=== PATIENT | female | born 1955 | race Caucasian/White ===

== ENCOUNTER 2018-06-03 09:37 | Day surgery (SDC) | payer OTHER ==
[~2018-06-03 09:37] MED LIST: BUPIVACAINE HCL 0.75% INJ/PF (7.5 MG/1 ML) 10 ML SDV OS PRN; CHONDR SU A NA/HYALUR INTRAOC KIT (SURGICARE) ONE; EPINEPHRINE INJ/PF 1 MG/1 ML AMPULE ONE; KETOROLAC TROMETHAMINE 0.45% 4 DROP/0.4 ML DROPERETTE OS PRN; LIDOCAINE 1% INJ-PF (10 MG/ML) 30 ML SDV ONE; LIDOCAINE 4% INJ/PF (40 MG/ML) 5 ML AMPUL OS PRN
[2018-06-03] MEDS: TROPICAMIDE 1% OPH SOLN 3 ML OS PRN ×3 (11:25→11:45)
[2018-06-03] MEDS: CYCLOPENTOLATE 0.2%/PHENYLEPHRINE 1% OPH SOLN 2 ML OS PRN ×3 (11:25→11:45)
[2018-06-03] MEDS: BESIFLOXACIN HCL 0.6% OPH SUSP 5 ML BOTTLE OS PRN ×4 (11:26→12:25)
[2018-06-03] MEDS: TETRACAINE HCL 0.5% OPH SOLN 0.6 ML DROPERETTE OS PRN ×2 (11:27→11:47)
[2018-06-03] MEDS ORDERED: MIDAZOLAM 2 MG/2 ML INJ ONE (11:31)
[2018-06-03] MEDS ORDERED: LIDOCAINE 1%/PHENYLEPHRINE 1.5% 1 ML VIAL ONE (12:07)
[2018-06-03] MEDS: DORZOLAMIDE HCL 2%/TIMOLOL MALEAT 0.5% OPH SOLN 10 ML OS PRN ×2 (12:25)
[2018-06-03] MEDS ORDERED: PROPOFOL INJ 200 MG/20 ML VIAL IV ONE (12:28)
[2018-06-03] MEDS ORDERED: ACETAMINOPHEN 325 MG TABLET ONE (12:40)
--- NOTE | 2018-06-03 12:43 | [facility] DISCHARGE SUMMARY E ---
[facility] Discharge Summary NAME: RAHEEL NORIEGA AGE: 62Y ADMITTED: 06/03/2018 DISCHARGED: 06/03/2018 FINAL DIAGNOSIS: CATARACT, LEFT EYE HOSPITAL COURSE: The patient is a 62-year-old lady who underwent uneventful cataract extraction with intraocular lens implant, left eye on 06/03/2018. She will be discharged to home. She is instructed to resume preoperative medications, take Tylenol as needed for discomfort, to keep her eye shielded, to use Durezol, PROLENSA, and Besivance at 3 p.m. and 8 p.m., and to follow up in my office in 1 day. DICTATING PHYSICIAN: RYAN VALDES M.D. [id number] PHY#: [id number] ID: [id number] JOB#: [id number] ACCT: [id number] cc:RYAN VALDES M.D. >
--- NOTE | 2018-06-03 12:43 | [facility] OPERATIVE REPORT E ---
[facility] Operative Report NAME: RAHEEL NORIEGA AGE: 62Y DATE OF SURGERY: 06/03/2018 ROOM: PREOPERATIVE DIAGNOSIS: CATARACT, LEFT EYE. POSTOPERATIVE DIAGNOSIS: CATARACT, LEFT EYE. PROCEDURE PERFORMED: PHACOEMULSIFICATION WITH SYMFONY INTRAOCULAR LENS IMPLANT, LEFT EYE. SURGEON: RYAN VALDES MD ANESTHESIA: TOPICAL WITH MAC. PROCEDURE: The patient was brought to the Operating Room and placed on the operative table. Following tetracaine drops, topical anesthesia was administered. This consisted of instrument wipe pledgets soaked in a solution of 4% Xylocaine mixed with 0.75% Marcaine in a 1:2 ratio. A 2 x 1 cm pledget was placed in the superior fornix. A 1 x 1 cm pledget was placed in the inferior fornix. The eye was patched shut for 5 minutes. The patch was removed. The eye was sterilely prepped and draped in the usual manner. Lid speculum was placed in the eye. The pledgets were removed. 4-0 black silk sutures were placed around the superior and the inferior rectus muscles to be used as traction. A conjunctival peritomy was made at the 10 o'clock position. Hemostasis was obtained with bipolar cautery. A posterior limbal groove was created using a crescent knife and dissected anteriorly towards the cornea. A sharp point blade was used to create a paracentesis site at the 2 o'clock position. A 2.4 mm keratome was used to enter the anterior chamber through the groove. Viscoelastic was injected into the anterior chamber. An anterior capsulotomy was performed using Utrata forceps in a capsulorrhexis fashion. Hydrodissection and hydrodelineation were performed. Phacoemulsification was performed in okeeoy-kbe-bdnlkuc technique. A total of 2.28 CDE phaco time was used. Following this, the I/A unit was used to remove residual cortex. Viscoelastic was injected into the capsular bag. Intraocular lens model ZXR00, 20.0 diopters, serial number [id number] was placed in the capsular bag. The I/A unit was used to remove residual viscoelastic. The wound was seen to be watertight under high and low pressure, and no sutures were placed. The intraocular lens was well centered. The pressure was adjusted in the eye to normal pressure. The 4-0 black silk sutures and lid speculum were removed. The eye was shielded after Besivance drops were placed. The patient tolerated the procedure well and was sent to the Recovery Room in good condition. DICTATING PHYSICIAN: RYAN VALDES M.D. DICTATING PHYSICIAN: RYAN VALDES M.D. [id number] PHY#: [id number] ID: [id number] JOB#: [id number] ACCT: [id number] cc:RYAN VALDES M.D. >
== END 2018-06-03 13:33 | disposition home or self-care (01) ==
LOC: SC 09:37
PROVIDERS: ATTEND Ophthalmology
DX: H25.013 Cortical age-related cataract, bilateral (principal); H43.811 Vitreous degeneration, right eye; Z87.891 Personal history of nicotine dependence; M81.0 Age-related osteoporosis without current pathological fracture
CPT/HCPCS: 66984; V2788; J2250; J3490 ×4; J0171; J2704; J2370; 142

== ENCOUNTER 2018-07-07 07:55 | Day surgery (SDC) | payer OTHER ==
[~2018-07-07 07:55] MED LIST changes: +BUPIVACAINE HCL 0.75% INJ/PF (7.5 MG/1 ML) 10 ML SDV OD PRN; -BUPIVACAINE HCL 0.75% INJ/PF (7.5 MG/1 ML) 10 ML SDV OS PRN; -CHONDR SU A NA/HYALUR INTRAOC KIT (SURGICARE) ONE; -EPINEPHRINE INJ/PF 1 MG/1 ML AMPULE ONE; +KETOROLAC TROMETHAMINE 0.45% 4 DROP/0.4 ML DROPERETTE OD PRN; -KETOROLAC TROMETHAMINE 0.45% 4 DROP/0.4 ML DROPERETTE OS PRN; -LIDOCAINE 1% INJ-PF (10 MG/ML) 30 ML SDV ONE; +LIDOCAINE 4% INJ/PF (40 MG/ML) 5 ML AMPUL OD PRN; -LIDOCAINE 4% INJ/PF (40 MG/ML) 5 ML AMPUL OS PRN
[2018-07-07] MEDS: CYCLOPENTOLATE 0.2%/PHENYLEPHRINE 1% OPH SOLN 2 ML OD PRN ×3 (09:10→09:36)
[2018-07-07] MEDS: TROPICAMIDE 1% OPH SOLN 3 ML OD PRN ×3 (09:10→09:36)
[2018-07-07] MEDS: BESIFLOXACIN HCL 0.6% OPH SUSP 5 ML BOTTLE OD PRN ×4 (09:11→10:20)
[2018-07-07] MEDS: TETRACAINE HCL 0.5% OPH SOLN 0.6 ML DROPERETTE OD PRN ×2 (09:12→09:37)
[2018-07-07] MEDS ORDERED: EPINEPHRINE INJ/PF 1 MG/1 ML AMPULE ONE (09:54)
[2018-07-07] MEDS ORDERED: LIDOCAINE 1% INJ-PF (10 MG/ML) 30 ML SDV ONE (09:54)
[2018-07-07] MEDS ORDERED: CHONDR SU A NA/HYALUR INTRAOC KIT (SURGICARE) ONE (09:54)
[2018-07-07] MEDS: DORZOLAMIDE HCL 2%/TIMOLOL MALEAT 0.5% OPH SOLN 10 ML OD PRN ×2 (10:07→10:20)
[2018-07-07] MEDS ORDERED: MIDAZOLAM 2 MG/2 ML INJ ONE (10:32)
--- NOTE | 2018-07-07 10:54 | [facility] OPERATIVE REPORT E ---
[facility] Operative Report NAME: RAHEEL NORIEGA AGE: 62Y DATE OF SURGERY: 07/07/2018 ROOM: PREOPERATIVE DIAGNOSIS: Cataract, right eye. POSTOPERATIVE DIAGNOSIS: Cataract, right eye. PROCEDURE PERFORMED: Cataract surgery with Simponi intraocular lens implant, right eye. SURGEON: RYAN VALDES M.D. ANESTHESIA: Topical with MAC. INDICATIONS FOR SURGERY: Difficulty reading road signs. PROCEDURE: The patient was brought to the Operating Room and placed on the operative table. Following tetracaine drops, topical anesthesia was administered. This consisted of instrument wipe pledgets soaked in a solution of 4% Xylocaine mixed with 0.75% Marcaine in a 1:2 ratio. A 2 x 1 cm pledget was placed in the superior fornix. A 1 x 1 cm pledget was placed in the inferior fornix. The eye was patched shut for 5 minutes. The patch was removed. The eye was sterilely prepped and draped in the usual manner. Lid speculum was placed in the eye. The pledgets were removed. 4-0 black silk sutures were placed around the superior and the inferior rectus muscles to be used as traction. A conjunctival peritomy was made at the 10 o'clock position. Hemostasis was obtained with bipolar cautery. A posterior limbal groove was created using a crescent knife and dissected anteriorly towards the cornea. A sharp point blade was used to create a paracentesis site at the 2 o'clock position. A 2.4 mm keratome was used to enter the anterior chamber through the groove. Viscoelastic was injected into the anterior chamber. An anterior capsulotomy was performed using Utrata forceps in a capsulorrhexis fashion. Hydrodissection and hydrodelineation were performed. Phacoemulsification was performed in hmwnza-icm-vofywte technique. A total of 35 seconds phaco time was used. Following this, the I/A unit was used to remove residual cortex. Viscoelastic was injected into the capsular bag. Intraocular lens model ZXR00, 20 diopters, serial number [id number] was placed in the capsular bag. The I/A unit was used to remove residual viscoelastic. The wound was seen to be watertight under high and low pressure, and no sutures were placed. The intraocular lens was well centered. The pressure was adjusted in the eye to normal pressure. The 4-0 black silk sutures and lid speculum were removed. The eye was shielded after Besivance drops were placed. The patient tolerated the procedure well and was sent to the Recovery Room in good condition. DICTATING PHYSICIAN: RYAN VALDES M.D. [id number] PHY#: [id number] ID: [id number] JOB#: [id number] ACCT: [id number] cc:RYAN VALDES M.D. >
[2018-07-07] MEDS ORDERED: FENTANYL CITRATE INJ/PF 100 MCG/2 ML AMPUL ONE (10:58)
--- NOTE | 2018-07-07 10:59 | [facility] DISCHARGE SUMMARY E ---
[facility] Discharge Summary NAME: RAHEEL NORIEGA AGE: 62Y ADMITTED: 07/07/2018 DISCHARGED: 07/07/2018 HOSPITAL COURSE: The patient is a 62-year-old lady who underwent uneventful cataract extraction with Simponi intraocular lens implant, right eye, on 07/07/2018. She will be discharged to home. She is instructed to resume preoperative medications, to take Tylenol as needed for discomfort, to keep her eye shielded, to use Durezol, Prolensa, and Besivance at 3 p.m. and 8 p.m., and to follow up in my office in 1 day. DICTATING PHYSICIAN: RYAN VALDES M.D. [id number] PHY#: [id number] ID: [id number] JOB#: [id number] ACCT: [id number] cc:RYAN VALDES M.D. >
== END 2018-07-07 11:02 | disposition home or self-care (01) ==
LOC: SC 07:55
PROVIDERS: ATTEND Ophthalmology
DX: H25.011 Cortical age-related cataract, right eye (principal); Z96.1 Presence of intraocular lens; Z87.891 Personal history of nicotine dependence
CPT/HCPCS: 66984; V2788; J2250; J3490 ×4; J0171; J3010; 142